=== PATIENT | female | born 1990 | race Caucasian/White ===

== ENCOUNTER → 2019-05-30 | Outpatient (REF) | payer OTHER | LOC: M SFHCLERA 11:59 | PROVIDERS: ATTEND Nurse Practitioner Family | DX: R68.89 Other general symptoms and signs (principal) ==

== ENCOUNTER → 2020-02-09 | Outpatient (REF) | payer OTHER | LOC: M WUC 17:12 | PROVIDERS: ATTEND Physician Assistant | DX: N76.0 Acute vaginitis (principal) ==

== ENCOUNTER → 2020-02-29 | Outpatient (REF) | payer OTHER | LOC: M SFHCLERA 16:11 | PROVIDERS: ATTEND Nurse Practitioner Family | DX: N89.8 Other specified noninflammatory disorders of vagina (principal) ==

== ENCOUNTER → 2020-08-26 | Outpatient (REF) | payer OTHER | LOC: M SFHCLERA 15:54 | PROVIDERS: ATTEND Nurse Practitioner Family | DX: R30.0 Dysuria (principal) ==

== ENCOUNTER → 2021-01-26 | Outpatient (CLI) | payer OTHER ==
--- NOTE | 2021-01-26 15:13 | REP ---
INDICATION: RHEUMATIC TRICUSPID VALVE DISEASE, UNSPECIFIED. COMPARISON: None. TECHNIQUE: PA and lateral FINDINGS: The superior mediastinal structures are midline. The cardiac silhouette is unremarkable in size, shape, and position. The diaphragmatic surfaces of the lungs are regular, and the costophrenic angles are clear. The pulmonary caldera are clear. The imaged osseous structures are intact. IMPRESSION: There is no acute cardiopulmonary disease. <Electronically signed by Terrell Hair > 01/26/21 4709
== END ==
LOC: M RAD 14:30 → M LAB 14:30
PROVIDERS: ATTEND Family Medicine
DX: J18.9 Pneumonia, unspecified organism (principal)